=== PATIENT | male | born 1965 | race Caucasian/White ===

== ENCOUNTER 2023-02-20 15:13 | Outpatient (OUT) | payer OTHER, SELFPAY ==
[2023-02-20 15:46] LABS: Basophils Percent Auto 0.7 % (0.2-2.0); Eosinophils Absolute Auto 0.2 10^3/uL (0.0-0.7); Eosinophils Percent Auto 3.6 % (0.9-7.0); Hematocrit 39.2 % (42.0-54.0); Hemoglobin 13.1 g/dL (14.0-18.0); Immature Granulocytes Abs Auto 0.02 10^3/uL (0.00-0.03); Immature Granulocytes Pct Auto 0.5 % (0.0-0.5); Lymphocytes Absolute Auto 1.2 10^3/uL (1.2-3.8); Lymphocytes Percent Auto 28.3 % (20.5-60.0); Mean Corpuscular HGB Conc 33.4 g/dL (29.9-35.2); Mean Corpuscular Hemoglobin 29.4 pg (25.9-34.0); Mean Corpuscular Volume 88.1 fL (80.0-94.0); Mean Platelet Volume 9.9 fL (9.5-13.5); Monocytes Absolute Auto 0.7 10^3/uL (0.3-0.8); Monocytes Percent Auto 17.5 % (1.7-12.0); Neutrophils Absolute Auto 2.1 10^3/uL (1.4-6.5); Neutrophils Percent Auto 49.4 % (43.0-75.0); Platelet Count 203 10^3/uL (150-450); Red Blood Count 4.45 10^6/uL (4.70-6.10); Red Cell Distribution Width 12.2 % (11.0-15.0); White Blood Count 4.2 10^3/uL (4.0-11.0)
[2023-02-20 15:51] LABS: Estimated Average Glucose 111 mg/dL; Glycohemoglobin A1C 5.5 % (4.5-6.2)
[2023-02-20 16:39] LABS: Alanine Aminotransferase 24 U/L (16-63); Albumin Globulin Ratio 0.9; Albumin Level 3.7 g/dL (3.4-5.0); Alkaline Phosphatase 60 U/L (46-116); Anion Gap 12.6; Aspartate Amino Transferase 18 U/L (15-37); BUN Creatinine Ratio 14.5; Bilirubin Total 0.4 mg/dL (0.2-1.0); Calcium 9.3 mg/dL (8.5-10.1); Carbon Dioxide 27.2 mmol/L (21.0-32.0); Chloride 103 mmol/L (98-107); Chol HDL Ratio 2.7; Cholesterol 162 mg/dL (<=200); Estimated GFR (African America >60 (>=60); Estimated GFR (Non-African Ame >60 (>=60); Free T3 2.96 pg/mL (2.18-3.98); Glucose 87 mg/dL (74-106); HDL Cholesterol 61 mg/dL (40-60); Potassium 3.8 mmol/L (3.5-5.1); Sodium 139 mmol/L (136-145); Thyroid Stimulating Hormone 1.045 uIU/mL (0.358-3.740); Total Protein 7.7 g/dL (6.4-8.2); Triglycerides 42 mg/dL (<=150); VLDL CHOLESTEROL 8.4 mg/dL
== END 2023-02-20 15:14 ==
LOC: LAB 15:17
PROVIDERS: PCP Family Medicine; Visit Provider Family Medicine
DX: Z00.00 Encounter for general adult medical examination without abnormal findings (principal); Z12.5 Encounter for screening for malignant neoplasm of prostate
CPT/HCPCS: 36415; 80053; 80061; 83036; 84436; 84443; 84481; 85025; G0103

== ENCOUNTER 2024-04-05 11:01 | Outpatient (OUT) | payer OTHER, SELFPAY ==
[2024-04-05 11:27] LABS: Basophils Absolute Auto 0.1 10^3/uL (0.0-0.1); Basophils Percent Auto 1.1 % (0.2-2.0); Eosinophils Absolute Auto 0.3 10^3/uL (0.0-0.7); Eosinophils Percent Auto 7.1 % (0.9-7.0); Hematocrit 41.8 % (42.0-54.0); Hemoglobin 13.6 g/dL (14.0-18.0); Immature Granulocytes Abs Auto 0.01 10^3/uL (0.00-0.03); Immature Granulocytes Pct Auto 0.2 % (0.0-0.5); Lymphocytes Percent Auto 21.7 % (20.5-60.0); Mean Corpuscular HGB Conc 32.5 g/dL (29.9-35.2); Mean Corpuscular Hemoglobin 30.3 pg (25.9-34.0); Mean Corpuscular Volume 93.1 fL (80.0-94.0); Mean Platelet Volume 10.2 fL (9.5-13.5); Monocytes Absolute Auto 0.5 10^3/uL (0.3-0.8); Monocytes Percent Auto 11.6 % (1.7-12.0); Neutrophils Absolute Auto 2.6 10^3/uL (1.4-6.5); Neutrophils Percent Auto 58.3 % (43.0-75.0); Platelet Count 241 10^3/uL (150-450); Red Blood Count 4.49 10^6/uL (4.70-6.10); Red Cell Distribution Width 12.1 % (11.0-15.0); White Blood Count 4.4 10^3/uL (4.0-11.0)
[2024-04-05 11:39] LABS: Estimated Average Glucose 111 mg/dL; Glycohemoglobin A1C 5.5 % (4.5-6.2)
[2024-04-05 12:03] LABS: Alanine Aminotransferase 24 U/L (16-63); Albumin Globulin Ratio 0.9; Albumin Level 3.8 g/dL (3.4-5.0); Alkaline Phosphatase 56 U/L (46-116); Anion Gap 13.6; Aspartate Amino Transferase 21 U/L (15-37); Bilirubin Total 0.4 mg/dL (0.2-1.0); Calcium 8.9 mg/dL (8.5-10.1); Carbon Dioxide 26.5 mmol/L (21.0-32.0); Chloride 108 mmol/L (98-107); Chol HDL Ratio 2.7; Cholesterol 177 mg/dL (<=200); Estimated GFR (African America >60 (>=60); Estimated GFR (Non-African Ame >60 (>=60); Globulin 4.1 g/dL; Glucose 101 mg/dL (74-106); HDL Cholesterol 66 mg/dL (40-60); Potassium 4.1 mmol/L (3.5-5.1); Sodium 144 mmol/L (136-145); Thyroid Stimulating Hormone 0.663 uIU/mL (0.358-3.740); Total Protein 7.9 g/dL (6.4-8.2); Triglycerides 85 mg/dL (<=150)
[2024-04-05 12:06] LABS: Prostate Specific Antigen Scrn 2.41 ng/mL (<=4.00)
[2024-04-06 04:07] LABS: Testosterone 428 ng/dL (264-916)
== END 2024-04-05 11:02 | disposition home or self-care (01) ==
LOC: LAB 11:03
PROVIDERS: PCP Family Medicine; Visit Provider Family Medicine
DX: Z00.00 Encounter for general adult medical examination without abnormal findings (principal); I10 Essential (primary) hypertension; Z12.5 Encounter for screening for malignant neoplasm of prostate; E03.9 Hypothyroidism, unspecified; E78.5 Hyperlipidemia, unspecified; R73.09 Other abnormal glucose; R53.83 Other fatigue
CPT/HCPCS: 36415; 80053; 80061; 83036; 84403; 84439; 84443; 85025; G0103

== ENCOUNTER 2024-05-30 15:36 | Observation (INO) | payer OTHER, SELFPAY ==
[2024-05-30] VITALS (10 sets, daily range): BP systolic 126–192; BP diastolic 75–100; PULSE 43–96; TEMP 36.6–36.8; O2SAT 94–98; BMI 30.7; BMI 29.6
--- NOTE | 2024-05-30 16:01 | ECG_ITS ---
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
[2024-05-30 16:27] LABS: Anion Gap 8.4; BUN Creatinine Ratio 14.9; Calcium 9.2 mg/dL (8.5-10.1); Carbon Dioxide 32.5 mmol/L (21.0-32.0); Chloride 101 mmol/L (98-107); Estimated GFR (African America >60 (>=60); Estimated GFR (Non-African Ame >60 (>=60); Glucose 172 mg/dL (74-106); Potassium 3.9 mmol/L (3.5-5.1); Sodium 138 mmol/L (136-145)
[2024-05-30 16:39] LABS: Troponin I High Sensitivity 25.1 pg/mL (4.0-76.1)
--- NOTE | 2024-05-30 17:25 | ED.GENADUL1 ---
HPI HPI - General Adult General Chief complaint: Headache Stated complaint: Blood Pressure High Time Seen by Provider: 05/30/24 15:47 Source: patient Mode of arrival: walk-in Related Data Home Medications ?Medication ?Instructions ?Recorded ?Confirmed clonidine HCl 0.1 mg tablet 0.2 mg PO BID 05/30/24 05/30/24 hydralazine 100 mg tablet 100 mg PO BID 05/30/24 05/30/24 metformin 500 mg tablet 500 mg PO BID 05/30/24 05/30/24 pioglitazone 15 mg tablet 15 mg PO DAILY 05/30/24 05/30/24 Allergies Allergy/AdvReac Type Severity Reaction Status Date / Time oxytetracycline Allergy Severe Unknown Verified 05/30/24 15:48 [From Nilsa] Opioid HPI Opioid Management Most Recent Opioid Data: No Data to Display Exam Constitutional Vital Signs, click to edit/add: Last Vital Signs Temp 97.8 F 05/30/24 15:40 Pulse 93 H 05/30/24 16:32 Resp 18 05/30/24 16:32 BP 152/96 H 05/30/24 16:32 Pulse Ox 98 05/30/24 16:32 O2 Del Method Room Air 05/30/24 15:40 Course Vital Signs Vital signs: Vital Signs Temperature 97.8 F 05/30/24 15:40 Pulse Rate 90 05/30/24 15:40 Respiratory Rate 18 05/30/24 15:40 Blood Pressure 170/80 H 05/30/24 15:40 Pulse Oximetry 95 05/30/24 15:40 Oxygen Delivery Method Room Air 05/30/24 15:40 Temperature 97.8 F 05/30/24 15:40 Pulse Rate 93 H 05/30/24 16:32 Respiratory Rate 18 05/30/24 16:32 Blood Pressure 152/96 H 05/30/24 16:32 Pulse Oximetry 98 05/30/24 16:32 Oxygen Delivery Method Room Air 05/30/24 15:40 Medical Decision Making MDM Narrative Medical decision making narrative: This patient's blood pressure spontaneously decreased and he remains totally asymptomatic here. Renal function and Chem-7 is normal as is BNP and troponin. 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 When I ask him if he is had this before he has no knowledge of any type irregular heartbeats. I did speak to the hospitalist Dr. Zavala. She agrees that he should be admitted for observation and further work Lab Data Labs: Lab Results 05/30/24 Range/Units 16:11 Sodium 138 (136-145) mmol/L Potassium 3.9 (3.5-5.1) mmol/L Chloride 101 (98-107) mmol/L Carbon Dioxide 32.5 H (21.0-32.0) mmol/L Anion Gap 8.4 BUN 14.0 (7.0-18.0) mg/dL Creatinine 0.94 (0.70-1.30) mg/dL Est GFR ( Amer) >60 (>=60) Est GFR (Non-Af Amer) >60 (>=60) BUN/Creatinine Ratio 14.9 Glucose 172 H (74-106) mg/dL Calcium 9.2 (8.5-10.1) mg/dL Troponin I High Sens 25.1 (4.0-76.1) pg/mL NT-Pro-B Natriuret Pep 826.0 (<=900.0) pg/mL Discharge Plan Discharge Chief Complaint: Headache Clinical Impression: Arrhythmia Patient Disposition: Admitted as Observation Time of Disposition Decision: 17:31 Prescriptions / Home Meds: No Action clonidine HCl 0.1 mg tablet 0.2 mg PO BID hydralazine 100 mg tablet 100 mg PO BID metformin 500 mg tablet 500 mg PO BID pioglitazone 15 mg tablet 15 mg PO DAILY Print Language: Korean Referrals: Enrique Hennessy MD [Primary Care Provider] - 1 week
[2024-05-30] MEDS: CARVEDILOL 3.125 MG TABLET PO (20:08)
[2024-05-30] MEDS: CLONIDINE HCL 0.1 MG TABLET 0.2 MG PO (20:08)
[2024-05-30] MEDS: HYDRALAZINE HCL 50 MG TABLET 100 MG PO (20:08)
[2024-05-30 20:29] LABS: Glucometer 137 mg/dL (74-106)
[2024-05-31] VITALS (8 sets, daily range): BP systolic 118–192; BP diastolic 72–94; PULSE 39–93; TEMP 36.6–36.7; O2SAT 93–96
[2024-05-31 05:51] LABS: Basophils Percent Auto 0.6 % (0.2-2.0); Eosinophils Absolute Auto 0.3 10^3/uL (0.0-0.7); Eosinophils Percent Auto 4.7 % (0.9-7.0); Hemoglobin 13.5 g/dL (14.0-18.0); Immature Granulocytes Abs Auto 0.02 10^3/uL (0.00-0.03); Immature Granulocytes Pct Auto 0.4 % (0.0-0.5); Lymphocytes Absolute Auto 1.4 10^3/uL (1.2-3.8); Lymphocytes Percent Auto 25.2 % (20.5-60.0); Mean Corpuscular HGB Conc 32.9 g/dL (29.9-35.2); Mean Corpuscular Hemoglobin 29.9 pg (25.9-34.0); Mean Corpuscular Volume 90.9 fL (80.0-94.0); Mean Platelet Volume 10.1 fL (9.5-13.5); Monocytes Absolute Auto 0.9 10^3/uL (0.3-0.8); Monocytes Percent Auto 16.1 % (1.7-12.0); Neutrophils Absolute Auto 2.8 10^3/uL (1.4-6.5); Platelet Count 191 10^3/uL (150-450); Red Blood Count 4.51 10^6/uL (4.70-6.10); White Blood Count 5.4 10^3/uL (4.0-11.0)
[2024-05-31 06:06] LABS: Estimated Average Glucose 114 mg/dL; Glycohemoglobin A1C 5.6 % (4.5-6.2)
[2024-05-31 06:21] LABS: Alanine Aminotransferase 18 U/L (16-63); Albumin Globulin Ratio 0.8; Albumin Level 3.2 g/dL (3.4-5.0); Alkaline Phosphatase 50 U/L (46-116); Aspartate Amino Transferase 14 U/L (15-37); BUN Creatinine Ratio 26.1; Bilirubin Total 0.5 mg/dL (0.2-1.0); Calcium 8.9 mg/dL (8.5-10.1); Carbon Dioxide 28.1 mmol/L (21.0-32.0); Chloride 103 mmol/L (98-107); Chol HDL Ratio 3.1; Cholesterol 168 mg/dL (<=200); Estimated GFR (African America >60 (>=60); Estimated GFR (Non-African Ame >60 (>=60); Globulin 3.8 g/dL; Glucose 120 mg/dL (74-106); HDL Cholesterol 55 mg/dL (40-60); Magnesium 1.8 mg/dL (1.8-2.4); Potassium 4.1 mmol/L (3.5-5.1); Sodium 138 mmol/L (136-145); Thyroid Stimulating Hormone 1.395 uIU/mL (0.358-3.740); Triglycerides 95 mg/dL (<=150)
[2024-05-31 06:23] LABS: Troponin I High Sensitivity 27.1 pg/mL (4.0-76.1)
--- NOTE | 2024-05-31 07:51 | P.HP_ITS ---
HPI H&P: HPI History of Present Illness Chief complaint: Blood Pressure High, Arrhythmia Narrative: Patient has been seen in the office with increasing blood pressure. Medications were adjusted. Over the weekend, his blood pressure continued to elevate with sudden systolics over 200, diastolics over 100, and significant headache today prior to coming in, denied chest pain or shortness of breath, but did present to the emergency room due to the elevated blood pressure. Significantly elevated in the ER with a blood pressure 192/75 although patient was asymptomatic I saw patient up in the medical surgical floor, he was resting comfortably in bed, no complaints currently. Denies chest pain or shortness of breath Opioid HPI Opioid Management Most Recent Pain and Opioid Data: Last Pain Assessment 05/31/24 06:00 Last ORT Total Score 6 05/30/24 18:34 Last ORT Risk Category Moderate Risk 05/30/24 18:34 Review of Systems ROS Status of ROS 10 or more systems reviewed and unremark able except as noted in history and below PFSH PFSH Medical History (Updated 05/31/24 @ 07:55 by Enrique Hennesys MD) Diabetes ?E11.9 - Type 2 diabetes mellitus without complications (ICD-10) Hypertension ?I10 - Essential (primary) hypertension (ICD-10) Surgical History (Updated 05/30/24 @ 18:14 by Evon Stuart) Hx of tonsillectomy ?Z90.89 - Acquired absence of other organs (ICD-10) Family History (Updated 05/30/24 @ 18:14 by Evon Stuart) Mother Family history of cancer Family history of diabetes mellitus Father Family history of diabetes mellitus Family history of hypertension Social History (Updated 05/30/24 @ 18:16 by Evon Stuart) Within the past year, how often did you have a drink containing alcohol: 4 or more times a week Within the past year, how many standard drinks containing alcohol did you have on a typical day: 5 or 6 Within the past year, how often did you have six or more drinks on one occasion: weekly Total score: 7 Score interpretation: A score of 4 or more indicates drinking is likely to affect patient's safety. Smoking status: Former smoker Non-prescribed substance use: denies use and former substance user Previous occupational history: [employer] Highest level of school completed/degree received: some college, no degree Are you now , , , , never or living with a partner: In a typical week, how many times do you talk on the telephone with family, friends, or neighbors: 3 or more times per week How often do you get together with friends or relatives: 3 or more times per week How often do you attend jain or worship services: 4 or more times per year Do you belong to any clubs or organizations such as jain groups unions, fraternal or athletic groups, or school groups: no Total score: 3 Score interpretation: A score of greater than or equal to 2 indicates the lowest level of social isolation. Little interest or pleasure in doing things: not at all Feeling down, depressed, or hopeless: not at all Feel stressed/tense/nervous/anxious/difficulty sleeping: not at all Meds Home Medications and Allergies Home Medications ?Medication ?Instructions ?Recorded ?Confirmed ?Type clonidine HCl 0.1 mg tablet 0.2 mg PO BID 05/30/24 05/30/24 History hydralazine 100 mg tablet 100 mg PO BID 05/30/24 05/30/24 History metformin 500 mg tablet 500 mg PO BID 05/30/24 05/30/24 History pioglitazone 15 mg tablet 15 mg PO DAILY 05/30/24 05/30/24 History carvedilol 6.25 mg tablet 6.25 mg PO BID #60 tabs 05/31/24 Rx Allergies Allergy/AdvReac Type Severity Reaction Status Date / Time oxytetracycline Allergy Severe Unknown Verified 05/30/24 15:48 [From Terramycin] Exam Constitutional Vital Signs, click to edit/add: Last Vital Signs Temp 97.8 F 05/31/24 04:00 Pulse 93 H 05/31/24 07:50 Resp 15 05/31/24 04:00 BP 123/84 05/31/24 04:00 Pulse Ox 93 L 05/31/24 04:00 O2 Del Method Room Air 05/31/24 04:00 Documenting provider has reviewed patient's vital signs: yes Common normals: no apparent distress Respiratory Common normals: normal respiratory effort, no retractions and clear to auscultation bilaterally Cardio Common normals: regular rate and no murmurs Rhythm: abnormal rhythm GI Common normals: Normal to inspection, nondistended, normoactive bowel sounds present, soft to palpation and no hepatosplenomegaly Neuro Common normals: oriented x3, CN's II-XII intact bilaterally and moves all extremities Results Labs Labs: Short CBC 05/31/24 Range/Units 05:44 WBC 5.4 (4.0-11.0) 10^3/uL Hgb 13.5 L (14.0-18.0) g/dL Hct 41.0 L (42.0-54.0) % Plt Count 191 (150-450) 10^3/uL BMP 05/30/24 05/31/24 16:11 05:44 Sodium 138 138 Potassium 3.9 4.1 Chloride 101 103 Carbon Dioxide 32.5 H 28.1 BUN 14.0 18.0 Creatinine 0.94 0.69 L Glucose 172 H 120 H Calcium 9.2 8.9 Liver Function 05/31/24 Range/Units 05:44 Total Bilirubin 0.5 (0.2-1.0) mg/dL AST 14 L (15-37) U/L ALT 18 (16-63) U/L Alkaline Phosphatase 50 (46-116) U/L Albumin 3.2 L (3.4-5.0) g/dL Assessment and Plan Assessment and Plan (1) Hypertension: (2) Atrial trigeminy: (3) Uncontrolled hypertension: Plan Admission findings: Uncontrolled hypertension with blood pressure 192/75, troponin and BNP all negative. Arrhythmia noted on telemetry to be trigeminy Uncontrolled hypertension leading to the above-added Coreg, tolerating well so far, no bradycardia, if stable this morning will likely discharge to home in improving condition. Medications see list. Follow-up with me in the office in the next 2 to 3 days. If blood pressure significantly elevates, will check echocardiogram and consult to cardiology NIDDM-insulin sliding scale, continue with home medications Iron deficiency anemia-will follow as an outpatient Admission status: Patient mated with uncontrolled hypertension and trigeminy, so far is improved this morning, medically necessary treatment will likely span 1 midnight. Maintain observation status
--- NOTE | 2024-05-31 07:58 | P.DS_ITS ---
DS: Providers Provider Date of admission: 05/30/24 18:05 Primary care physician: Enrique Hennessy MD DS: Diagnosis Discharge Diagnosis (1) Hypertension: (2) Atrial trigeminy: (3) Uncontrolled hypertension: Plan Admission findings: Uncontrolled hypertension with blood pressure 192/75, troponin and BNP all negative. Arrhythmia noted on telemetry to be trigeminy Uncontrolled hypertension leading to the above including trigeminy-added Coreg, improving at the time of discharge NIDDM-stable at the time of discharge Iron deficiency anemia-will follow as an outpatient Admission status: Patient mated with uncontrolled hypertension and trigeminy, so far is improved this morning, medically necessary treatment will likely span 1 midnight. Maintain observation status DS: Summary Hospital Course Hospital Course: Patient admitted with uncontrolled hypertension with blood pressure of 192/75, placed on Coreg, added his regular home medications as well and his blood pressure did improve significantly. So far his blood pressures in the 120s this morning. But patient has not been ambulating yet. So the plan is to have him eat breakfast, ambulate, if blood pressure remains well-controlled, he can be discharged to home in improving condition. Medications see list. Follow-up with me in the office in 2 to 3 days. Time Spent with Patient Time attestation: Total time spent providing and/or coordinating discharge services: Exam Constitutional Vital Signs, click to edit/add: Last Vital Signs Temp 97.8 F 05/31/24 04:00 Pulse 93 H 05/31/24 07:50 Resp 15 05/31/24 04:00 BP 123/84 05/31/24 04:00 Pulse Ox 93 L 05/31/24 04:00 O2 Del Method Room Air 05/31/24 04:00 Documenting provider has reviewed patient's vital signs: yes Common normals: no apparent distress Respiratory Common normals: normal respiratory effort, no retractions and clear to auscultation bilaterally Cardio Common normals: regular rate and no murmurs Rhythm: abnormal rhythm GI Common normals: Normal to inspection, nondistended, normoactive bowel sounds present, soft to palpation and no hepatosplenomegaly Neuro Common normals: oriented x3, CN's II-XII intact bilaterally and moves all extremities DS: Data Data Completed and Pending Labs on day of discharge: Labs from last 24 hours 05/31/24 05/30/24 05/30/24 05:44 20:27 16:11 WBC 5.4 RBC 4.51 L Hgb 13.5 L Hct 41.0 L MCV 90.9 MCH 29.9 MCHC 32.9 RDW 12.0 Plt Count 191 MPV 10.1 Neut % (Auto) 53.0 Lymph % (Auto) 25.2 [place] % (Auto) 16.1 H Eos % (Auto) 4.7 Baso % (Auto) 0.6 Neut # (Auto) 2.8 Lymph # (Auto) 1.4 [place] # (Auto) 0.9 H Eos # (Auto) 0.3 Baso # (Auto) 0.0 Abs Immat Gran (auto) 0.02 Imm/Tot Granulo (auto) 0.4 Sodium 138 138 Potassium 4.1 3.9 Chloride 103 101 Carbon Dioxide 28.1 32.5 H Anion Gap 11.0 8.4 BUN 18.0 14.0 Creatinine 0.69 L 0.94 Est GFR ( Amer) >60 >60 Est GFR (Non-Af Amer) >60 >60 BUN/Creatinine Ratio 26.1 14.9 Glucose 120 H 172 H Estimat Average Glucose 114 Hemoglobin A1c 5.6 Calcium 8.9 9.2 Magnesium 1.8 Total Bilirubin 0.5 AST 14 L ALT 18 Alkaline Phosphatase 50 Troponin I High Sens 27.1 25.1 NT-Pro-B Natriuret Pep 427.0 826.0 Total Protein 7.0 Albumin 3.2 L Globulin 3.8 Albumin/Globulin Ratio 0.8 Triglycerides 95 Cholesterol 168 LDL Cholesterol, Calc 94.0 VLDL Cholesterol 19.0 HDL Cholesterol 55 Cholesterol/HDL Ratio 3.1 TSH 1.395 POC Glucose 137 H Discharge Plan Discharge Disposition: Home, Self-Care Discharge Medications: New carvedilol 6.25 mg Tablet 6.25 mg PO BID Qty: 60 11RF Continued clonidine HCl 0.1 mg tablet 0.2 mg PO BID hydralazine 100 mg tablet 100 mg PO BID metformin 500 mg tablet 500 mg PO BID pioglitazone 15 mg tablet 15 mg PO DAILY Discontinued olmesartan 40 mg tablet 40 mg PO .qd Print Language: Burkinan Forms: Portal Instructions
[2024-05-31] MEDS: PIOGLITAZONE 15 MG TABLET PO (08:03)
[2024-05-31] MEDS: METFORMIN HCL 500 MG TABLET PO (08:03)
[2024-05-31] MEDS: CLONIDINE HCL 0.1 MG TABLET 0.2 MG PO (08:04)
[2024-05-31] MEDS: HYDRALAZINE HCL 50 MG TABLET 100 MG PO (08:04)
[2024-05-31] MEDS: CARVEDILOL 6.25 MG TABLET PO (08:05)
--- NOTE | 2024-06-01 10:39 | CM.DCFOLLOWU ---
Person spoke with:patient How are you feeling?well, at work How is your pain? none Did you understand your discharge instructions? yes Do you have any questions about your discharge instructions? no Were you given any prescriptions at discharge? yes Were you able to get your prescriptions filled? yes Do you understand how to take your medications as ordered? yes Do you have any questions about your follow up appointment and do you plan to keep your follow up appointment? no questions, follow up reviewed Is there anything else that you would like to discuss? no Questions/Comments/Concerns/Other: none
== END 2024-05-31 10:00 | disposition home or self-care (01) ==
LOC: ER 17:31 → MS 18:08
PROVIDERS: Family Medicine; Admitting Provider Family Medicine; Emergency Provider Emergency Medicine Emergency Medical Services; PCP Family Medicine; Visit Provider Family Medicine
DX: I10 Essential (primary) hypertension (principal); R00.8 Other abnormalities of heart beat; E11.9 Type 2 diabetes mellitus without complications; D50.9 Iron deficiency anemia, unspecified; Z79.84 Long term (current) use of oral hypoglycemic drugs; Z87.891 Personal history of nicotine dependence
CPT/HCPCS: 36415; 80048; 80053; 80061; 83036; 83735; 83880; 84443; 84484; 85025; 93005; 99285; G0378

== ENCOUNTER 2024-06-08 14:25 | Outpatient (OUT) | payer OTHER, SELFPAY | END 2024-06-08 14:26 | disposition home or self-care (01) | LOC: PST 14:25 | PROVIDERS: PCP Family Medicine; Visit Provider Surgery | DX: Z01.818 Encounter for other preprocedural examination (principal); Z86.010 Personal history of colon polyps ==

== ENCOUNTER 2024-06-16 07:07 | Day surgery (SDC) | payer OTHER, SELFPAY ==
--- NOTE | 2024-06-16 | OP_ITS ---
OPERATION DATE: 06/16/2024 PREOPERATIVE DIAGNOSIS: Personal history of colon polyps. POSTOPERATIVE DIAGNOSIS: Ascending and transverse colon polyps, 4 and 3 mm respectively. PROCEDURE: Colonoscopy to cecum with cold snare polypectomy x2. SURGEON: Francisco Walton M.D. ANESTHESIA: Monitored anesthesia care. ESTIMATED BLOOD LOSS: Less than 1 mL. INDICATIONS AND CONSENT: Patient is a 58-year-old male with a personal history of colon polyps. Last colonoscopy 2018. Indications, risks, benefits, alternatives of proceeding with colonoscopy were explained extensively to the patient, including the risks of bleeding, colon perforation or anesthetic complications. All of his questions were answered. Informed consent was obtained. PROCEDURE: Patient brought to the operating room, placed in the left lateral decubitus position. Monitored anesthesia care was provided. Rectal exam was performed which showed no masses or blood. The scope was inserted into the anal canal. Under direct visualization was advanced. With the aid of abdominal compression, it was advanced to the cecum where cecal markings were clearly identified. Upon withdrawal of the scope, mucosal surfaces were carefully examined. There were no mass lesions or inflammatory changes. Within the ascending colon, there was noted to be a flat, 4 mm polyp that was removed with cold snare with good hemostasis. Within the transverse colon, there was noted to be a 3 mm sessile polyp that was also removed with cold biopsy forceps with good hemostasis. There were no other polyps or significant diverticulosis. The scope was retroflexed in the anal canal. There was no significant hemorrhoidal disease. Scope was then withdrawn. Patient tolerated procedure well, was sent to recovery room in good condition. Follow up surveillance colonoscopy likely in five years, but will depend on the pathology. CC: Enrique Hennessy M.D. ANGELLA
--- OUTSIDE RECORDS SUMMARY | 2024-06-16 07:09 | XMS_ITS | CCD ---
Author Organization [facility] Care Team Providers Care Torn[place] Chaser Name Role Phone DR PARAG HENNESSY Attending Unavailable DR PARAG HENNESSY Consulting Unavailable DR PARAG HENNESSY Primary Care Unavailable DR PARAG HENNESSY Admitting Unavailable Parag Hennessy Primary Care Physician Francisco BHAGAT Attending Unavailable Parag Hennessy Referring Unavailable Allergies Allergy Classification Reported Allergen(s) Allergy Type Date of Onset Reaction(s) Facility (1 source) bee venom Drug allergy (disorder) [facility] (1 source) Oxytetracycline Drug Allergy [facility] (1 source) No Known Medication Allergies; Translations: [No Known Medication Allergies] Propensity to adverse reactions (disorder) [facility] Repository Medications Current Medications Medication Drug Class(es) Dates Sig (Normalized) Sig (Original) cloNIDine hydrochloride 0.1 mg oral tablet (1 source) Central alpha-2 Adrenergic Agonist Start: 05-24-2024 take 2 tablets by mouth twice daily cloNIDine 0.1 mg tab 0.2 mg = 2 tab(s), Oral, BID, Refills(s) 0 Start Date: 05/24/24 Status: Ordered hydrALAZINE hydrochloride 100 mg oral tablet (1 source) Arteriolar Vasodilator Start: 05-24-2024 take 1 tablet by mouth twice daily hydrALAZINE 100 mg oral tablet 100 mg = 1 tab(s), Oral, BID, Refills(s) 0 Start Date: 05/24/24 Status: Ordered metFORMIN hydrochloride 500 mg oral tablet (1 source) Biguanide Start: 05-24-2024 take 1 tablet by mouth twice daily metformin 500 mg Tab 500 mg = 1 tab(s), Oral, BID, Refills(s) 0 Start Date: 05/24/24 Status: Ordered pioglitazone 15 mg oral tablet (1 source) Peroxisome Proliferator Receptor alpha Agonist, Peroxisome Proliferator Receptor gamma Agonist, Thiazolidinedione Start: 05-24-2024 take 1 tablet by mouth once daily pioglitazone 15 mg Tab 15 mg = 1 tab(s), Oral, Daily, Refills(s) 0 Start Date: 05/24/24 Status: Ordered Problems Problem Classification Problem Date Documented Da te Episodic/Chronic Alcohol-related disorders (1 source) Alcohol abuse 05-24-2024 Chronic Diabetes mellitus without complication (2 sources) Type 2 diabetes mellitus without complications; Translations: [Diabetes mellitus] Onset: 08-17-2022 05-23-2024 Chronic Essential hypertension (1 source) Hypertensive disorder 05-23-2024 Chronic Malaise and fatigue (1 source) Other fatigue; Translations: [OTHER FATIGUE] Onset: 08-17-2022 Episodic Other and unspecified benign neoplasm (2 sources) History of polyp of colon; Translations: [Personal history of colonic polyps] Onset: 05-26-2024 Episodic Other nutritional; endocrine; and metabolic disorders (1 source) Body mass index 30+ - obesity 05-26-2024 Chronic Other nutritional; endocrine; and metabolic disorders (1 source) Obesity caused by energy imbalance 05-24-2024 Chronic Other screening for suspected conditions (not mental disorders or infectious disease) (1 source) Encounter for screening for malignant neoplasm of prostate; Translations: [ENC SCREEN MALIG NEOPLASM PROSTATE] Onset: 08-17-2022 Episodic Results Test Name Value Interpretation Reference Range Facility Ambulatory Visit Summaryon 0 05-26-2024 Ambulatory Visit Summary Ambulatory Visit Summary ABDIRASHDIHARSHAD WEBER JR :1965 Visit Date:05/26/2024 Ambulatory Visit Instructions Your Diagnosis Personal history of colonic polyps Your Care Team Attending Physician - LEOLA MEJIA, Francisco Narayan Primary Care Physician - Parag Hennessy MD Referring Physician - Parag Hennessy MD This Is Your Medications List Contact prescribing physician if questions or concerns clonidine (cloNIDine 0.1 mg tab) hydrALAZINE (hydrALAZINE 100 mg oral tablet) metformin (metformin 500 mg Tab) pioglitazone (pioglitazone 15 mg Tab) Procedures Performed Colonoscopy (09/02/2018), EGD - esophagogastroduodenoscopy (09/02/2018), Tonsillectomy. Discharge Vitals Heart Rate (Peripheral) 76 Respiratory Rate 16 Blood Pressure 160/120 Height 64 in Height 162.5 cm Weight 178.86 lb Weight 81.3 kg BMI 30.79 Medications What How Much When Instructions Unchanged clonidine (cloNIDine 0.1 mg tab) 2 Tablets By Mouth 2 times a day Contact prescribing physician if questions or concerns Unchanged hydrALAZINE (hydrALAZINE 100 mg oral tablet) 1 Tablets By Mouth 2 times a day Contact prescribing physician if questions or concerns Unchanged metformin (metformin 500 mg Tab) 1 Tablets By Mouth 2 times a day Contact prescribing physician if questions or concerns Unchanged pioglitazone (pioglitazone 15 mg Tab) 1 Tablets By Mouth Every day Contact prescribing physician if questions or concerns Allergies No Known Allergies No Known Medication Allergies Problems Ongoing - Any problem that you are currently receiving treatment for. Alcohol abuse BMI 30.0-30.9,adult Diabetes HTN (hypertension) Obesity due to excess calories Personal history of colonic polyps Patient Survey You may receive a survey via text or e-mail asking about your office visit. Please share your experience with us by completing your survey. We appreciate your feedback and thank you for choosing us for your care. Normal [facility] Provider Letteron 04-16-2024 Provider Letter Provider Letter April 16, 2024 HARSHAD MILO [address] [place] [id number] : 1965 Dear Mr. Pedraza, We have been trying to reach you with no success regarding a referral from Dr Hennessy. It is important that you return our call upon receiving this letter. Also, at the time of your call, please provide us with your current information. Thank you for your prompt attention to this matter. Sincerely, [facility] General Surgery [phone] Normal [facility] CBC AUTO DIFFon 08-14-2022 BASO # 0.0 103/ul Normal 0.0-0.1 [facility] Comment on above: Performed By: #### C BC #### [facility] [address] [place] [address] Dr. Annelise Xavier Basophils/100 WBC (Bld) 0.8 % Normal 0.2-2.0 [facility] Comment on above: Performed By: #### C BC #### [facility] [address] [address] [address] Annelise Xavier EO # 0.2 103/ul Normal 0.0-0.7 [facility] Comment on above: Performed By: #### C BC #### [facility] [address] [place] [address] Dr. Annelise Xavier Eosinophils/100 WBC (Bld) 3.8 % Normal 0.9-7.0 [facility] Comment on above: Performed By: #### C BC #### [facility] [address] [place] [address] Dr. Annelise Xavier Erythrocyte distribution width (RBC) [Ratio] 12.0 % Normal 11.0-15.0 [facility] Comment on above: Performed By: #### C BC #### [facility] [address] [place] [address] Dr. Annelise Xavier Hematocrit (Bld) [Volume fraction] 39.4 % Critically low 42.0-54.0 [facility] Comment on above: Performed By: #### C BC #### [facility] [address] [place] [address] Dr. Annelise Xavier Hemoglobin (Bld) [Mass/Vol] 13.2 g/dL Critically low 14.0-18.0 [facility] Comment on above: Performed By: #### C BC #### [facility] [address] [place] [address] Dr. Annelise Xavier IG # 0.01 10e3/ul Normal 0.00-0.03 [facility] Comment on above: Performed By: #### C BC #### [facility] [address] [place] [address] Dr. Annelise Xavier IG % 0.2 % Normal 0.0-0.5 [facility] Comment on above: Performed By: #### C BC #### [facility] [address] [place] [address] Dr. Annelise Xavier LYMPH # 1.3 103/ul Normal 1.2-3.8 [facility] Comment on above: Performed By: #### C BC #### [facility] [address] [place] [address] Dr. Annelise Xavier Lymphocytes/100 WBC (Bld) 24.4 % Normal 20.5-60.0 [facility] Comment on above: Performed By: #### C BC #### [facility] [address] [place] [address] Dr. Annelise Xavier MANUAL DIFF REQ NO Normal [facility] Comment on above: Performed By: #### C BC #### [facility] [address] [place] [address] Dr. Annelise Xavier MCH (RBC) [Entitic mass] 29.9 pg Normal 25.9-34.0 [facility] Comment on above: Performed By: #### C BC #### [facility] [address] [place] [address] Dr. Annelise Xavier MCHC (RBC) [Mass/Vol] 33.5 g/dL Normal 29.9-35.2 [facility] Comment on above: Performed By: #### C BC #### [facility] [address] [place] [address] Dr. Annelise aXvier MCV (RBC) [Entitic vol] 89.1 fL Normal 80.0-94.0 [facility] Comment on above: Performed By: #### C BC #### [facility] [address] [place] [address] Dr. Annelise Xavier MONO # 0.7 103/ul Normal 0.3-0.8 [facility] Comment on above: Performed By: #### C BC #### [facility] [address] [place] [address] Dr. Annelise Xavier Monocytes/100 WBC (Bld) 12.8 % Critically high 1.7-12.0 [facility] Comment on above: Performed By: #### C BC #### [facility] [address] [place] [address] Dr. Annelise Xavier NEUT # 3.0 103/ul Normal 1.4-6.5 [facility] Comment on above: Performed By: #### C BC #### [facility] [address] [place] [address] Dr. Annelise Xavier Neutrophils/100 WBC (Bld) 58.0 % Normal 43.0-75.0 [facility] Comment on above: Performed By: #### C BC #### [facility] [address] [address] [address] Annelise Xavier Platelet mean volume (Bld) [Entitic vol] 9.8 fL Normal 9.5-13.5 [facility] Comment on above: Performed By: #### C BC #### [facility] [address] [place] [address] Dr. Annelise Xavier PLT 204 103/ul Normal 150-450 [facility] Comment on above: Performed By: #### C BC #### [facility] [address] [place] [address] Dr. Annelise Xavier RBC 4.42 106/ul Critically low 4.70-6.10 [facility] Comment on above: Performed By: #### C BC #### [facility] [address] [place] [address] Dr. Annelise Xavier WBC 5.2 103/ul Normal 4.0-11.0 [facility] Comment on above: Performed By: #### C BC #### [facility] [address] [place] [address] Dr. Annelise Xavier FREE T3on 08-14-2022 FREE T3 2.74 pg/mlL Normal 2.18-3.98 [facility] Comment on above: Performed By: #### T 4, FT3, CMP, TSH, LIPID #### [facility] [address] [place] [address] Dr. Annelise Xavier GLYCOHEMOGLOBIN A1Con 2021 ADA RECOMMENDATION SEE BELOW Normal [facility] Comment on above: Result Comment: ADA RECOMMENDED LIMIT 4.0 - 6.0 ADA THERAPEUTIC TARGET < 7.0 ACTION SUGGESTED > 7.0 Performed By: #### A 1C #### [facility] [address] [place] [address] Dr. Annelise Xavier Glucose [Mass/Vol] 120 mg/dL Normal [facility] Comment on above: Performed By: #### A 1C #### [facility] [address] [place] [address] Dr. Annelise Xavier HbA1c (Bld) [Mass fraction] 5.8 % Normal 4.5-6.2 [facility] Comment on above: Performed By: #### A 1C #### [facility] [address] [place] [address] Dr. Annelise Xavier LIPID PROFILEon 08-14-2022 CHOL-HDL RATIO NORM SEE BELOW Normal [facility] Comment on above: Result Comment: 3.3 - 4.4 LOW RISK 4.4 - 7.1 AVERAGE RISK 7.1 - 11.0 MODERATE RISK >11.0 HIGH RISK Performed By: #### T 4, FT3, CMP, TSH, LIPID #### [facility] [address] [place] [address] Dr. Annelise Xavier Cholesterol [Mass/Vol] 195 mg/dL Normal <=200 [facility] Comment on above: Performed By: #### T 4, FT3, CMP, TSH, LIPID #### [facility] [address] [place] [address] Dr. Annelise Xavier Cholesterol in HDL [Mass/Vol] 81 mg/dL Critically high 40-60 [facility] Comment on above: Performed By: #### T 4, FT3, CMP, TSH, LIPID #### [facility] [address] [place] [address] Dr. Annelise Xavier Cholesterol in LDL [Mass/Vol] 106.6 mg/dL Normal [facility] Comment on above: Performed By: #### T 4, FT3, CMP, TSH, LIPID #### [facility] [address] [place] [address] Dr. Annelise Xavier Cholesterol.total/ Cholesterol in HDL [Mass ratio] 2.4 {ratio} Normal [facility] Comment on above: Performed By: #### T 4, FT3, CMP, TSH, LIPID #### [facility] [address] [place] [address] Dr. Annelise Xavier HDL NORMAL > or = 60 mg/dl - LO W CARDIOVASCULAR RISK <40 mg/dl - HIGH CARDIOVASCULAR RISK Normal [facility] Comment on above: Performed By: #### T 4, FT3, CMP, TSH, LIPID #### [facility] [address] [address] [address] Annelise Xavier LDL CALC NORMAL SEE BELOW Normal [facility] Comment on above: Result Comment: <100 mg/dl OPTIMAL 100 - 129 mg/dl NEAR OR ABOVE OPTIMAL 130 - 159 mg/dl BORDERLINE HIGH 160 - 189 mg/dl HIGH >190 mg/dl VERY HIGH Performed By: #### T 4, FT3, CMP, TSH, LIPID #### [facility] [address] [place] [address] Dr. Annelise Xavier Triglyceride [Mass/Vol] 37 mg/dL Normal <=150 [facility] Comment on above: Performed By: #### T 4, FT3, CMP, TSH, LIPID #### [facility] [address] [place] [address] Dr. Annelise Xavier VLDL CALC 7.4 mg/dL Normal [facility] Comment on above: Performed By: #### T 4, FT3, CMP, TSH, LIPID #### [facility] [address] [place] [address] Dr. Annelise Xavier PROF 14(COMP METB)on 022 Albumin [Mass/Vol] 4.0 g/dL Normal 3.4-5.0 [facility] Comment on above: Performed By: #### T 4, FT3, CMP, TSH, LIPID #### [facility] [address] [place] [address] Dr. Annelise Xavier Albumin/Globulin [Mass ratio] 1.0 {ratio} Normal [facility] Comment on above: Performed By: #### T 4, FT3, CMP, TSH, LIPID #### [facility] [address] [place] [address] Dr. Annelise Xavier ALP [Catalytic activity/Vol] 58 U/L Normal 46-116 [facility] Comment on above: Performed By: #### T 4, FT3, CMP, TSH, LIPID #### [facility] [address] [place] [address] Dr. Annelise Xavier ALT [Catalytic activity/Vol] 24 U/L Normal 16-63 [facility] Comment on above: Performed By: #### T 4, FT3, CMP, TSH, LIPID #### [facility] [address] [address] [address] Annelise Xavier Anion gap [Moles/Vol] 12.8 mmol/L Normal [facility] Comment on above: Performed By: #### T 4, FT3, CMP, TSH, LIPID #### [facility] [address] [place] [address] Dr. Annelise Xavier AST [Catalytic activity/Vol] 23 U/L Normal 15-37 [facility] Comment on above: Performed By: #### T 4, FT3, CMP, TSH, LIPID #### [facility] [address] [place] [address] Dr. Annelise Xavier Bilirubin [Mass/Vol] 0.6 mg/dL Normal 0.2-1.0 [facility] Comment on above: Performed By: #### T 4, FT3, CMP, TSH, LIPID #### [facility] [address] [place] [address] Dr. Annelise Xavier Calcium [Mass/Vol] 9.5 mg/dL Normal 8.5-10.1 [facility] Comment on above: Performed By: #### T 4, FT3, CMP, TSH, LIPID #### [facility] [address] [place] [address] Dr. Annelise Xavier Chloride [Moles/Vol] 101 mmol/L Normal 98-107 [facility] Comment on above: Performed By: #### T 4, FT3, CMP, TSH, LIPID #### [facility] [address] [place] [address] Dr. Annelise Xavier CO2 [Moles/Vol] 26.1 mmol/L Normal 21.0-32.0 [facility] Comment on above: Performed By: #### T 4, FT3, CMP, TSH, LIPID #### [facility] [address] [place] [address] Dr. Annelise Xavier Creatinine [Mass/Vol] 0.68 mg/dL Critically low 0.70-1.30 [facility] Comment on above: Performed By: #### T 4, FT3, CMP, TSH, LIPID #### [facility] [address] [address] [address] Annelise Xavier EGFR-AF PALAUAN >60 Normal >=60 [facility] Comment on above: Performed By: #### T 4, FT3, CMP, TSH, LIPID #### [facility] [address] [address] [address] Annelise Xavier EGFR-NON AF PALAUAN >60 Normal >=60 [facility] Comment on above: Performed By: #### T 4, FT3, CMP, TSH, LIPID #### [facility] [address] [place] [address] Dr. Annelise Xavier Globulin (S) [Mass/Vol] 4.0 g/dL Normal [facility] Comment on above: Performed By: #### T 4, FT3, CMP, TSH, LIPID #### [facility] [address] [address] [address] Annelise Xavier Glucose [Mass/Vol] 105 mg/dL Normal 74-106 [facility] Comment on above: Performed By: #### T 4, FT3, CMP, TSH, LIPID #### [facility] [address] [address] [address] Annelise Xavier Potassium [Moles/Vol] 3.9 mmol/L Normal 3.5-5.1 [facility] Comment on above: Performed By: #### T 4, FT3, CMP, TSH, LIPID #### [facility] [address] [address] [address] Annelise Xavier Protein [Mass/Vol] 8.0 g/dL Normal 6.4-8.2 [facility] Comment on above: Performed By: #### T 4, FT3, CMP, TSH, LIPID #### [facility] [address] [address] [address] Annelise Xavier Sodium [Moles/Vol] 136 mmol/L Normal 136-145 [facility] Comment on above: Performed By: #### T 4, FT3, CMP, TSH, LIPID #### [facility] [address] [address] [address] Annelise Xavier Urea nitrogen [Mass/Vol] 15.0 mg/dL Normal 7.0-18.0 [facility] Comment on above: Performed By: #### T 4, FT3, CMP, TSH, LIPID #### [facility] [address] [address] [address] Annelise Xavier Urea nitrogen/Creatinin e [Mass ratio] 22.1 mg/mg Normal [facility] Comment on above: Performed By: #### T 4, FT3, CMP, TSH, LIPID #### [facility] [address] [address] [address] Annelise Xavier T4on 08-14-2022 T4 [Mass/Vol] 8.80 ug/dL Normal 4.50-12.10 [facility] Comment on above: Performed By: #### T 4, FT3, CMP, TSH, LIPID #### [facility] [address] [address] [address] Annelise Xavier TSHon 08-14-2022 TSH 1.029 uIU/mL Normal 0.358-3.740 [facility] Comment on above: Performed By: #### T 4, FT3, CMP, TSH, LIPID #### [facility] [address] [address] [address] Annelise Xavier Vital Signs Date Time Vital Sign Value Performing Clinician Merlin schumacher 05-26-2024 16:07-0400 Diastolic blood pressure 120 mm[Hg] Francisco BHAGAT [facility] 05-26-2024 16:07-0400 Mean blood pressure 133 mm[Hg] Francisco VARGHESEL [facility] 05-26-2024 16:07-0400 Systolic blood pressure 160 mm[Hg] Francisco VARGHESEL [facility] 05-26-2024 15:45-0400 Blood Pressure Location Francisco NILL [facility] 05-26-2024 15:45-0400 Diastolic blood pressure 116 mm[Hg] Francisco VARGHESEL [facility] 05-26-2024 15:45-0400 Heart rate 76 /min Francisco ABIMAELL [facility] 05-26-2024 15:45-0400 Respiratory rate 16 /min Francisco NILL [facility] 05-26-2024 15:45-0400 Systolic blood pressure 156 mm[Hg] Francisco NILL [facility] Encounters Encounter Date Encounter Type Care Provider Facility Start: 05-26-2024 End: 05-26-2024 ambulatory Francisco BHAGAT Facility:[facility] Start: 05-26-2024 End: 05-26-2024 Patient encounter procedure Francisco BHAGAT [facility] Start: 04-06-2024 ambulatory Francisco BHAGAT Facility:[facility] Start: 08-17-2022 Encounter for genera l adult medical examination without abnormal findings DR PARAG HENNESSY [facility] Start: 08-14-2022 End: 08-15-[address] PARAG HENNESSY Facility: Start: 08-14-2022 End: 08-15-2022 Encounter for general adult medical examination without abnormal findings DR PARAG HENNESSY Facility: Procedures Date Procedure Procedure Detail Performing Clinician Start: 08-14-[address] SEMAJ HENNESSY Comment on above: Performed By: #### P [facility] #### [facility] [address] [place] [address] Dr. Annelise Xavier Start: 09-02-2018 Colonoscopy Francisco GO Start: 09-02-2018 Esophagogastroduodenoscopy Francisco BHAGAT Tonsillectomy Francisco VARGHESEL Immunizations Immunization Date Immunization Notes Care Provider Fa cility 09-06-2021 SARS-CoV-2 (COVID-19 ) mRNA BNT-162b2 vax Francisco NILL [facility] 01-13-2021 SARS-CoV-2 (COVID-19 ) mRNA BNT-162b2 dangx Francisco BHAGAT [facility] Payers Date Payer Category Payer Unknown [id number] 1965 Unknown [id number] 1965 Unknown [id number] 1958 Unknown [id number] Social History Date Type Detail Facility Start: 05-26-2024 Tobacco smoking status Ex-smoker (fi nding) [facility] Tobacco smoking status Smokeless tobacco user within last 30 days [facility] Sex Assigned At Male [facility] Functional Status Date Assessment Result Facility 05-26-2024 Functional Status N/A [facility] Clinical Note 05-26-2024 Note Date & Type Note Facility 05-26-2024 Note General Surgery Offi ce/Clinic Note Chief Complaint consultation for colonoscopy HPI Staff 58 year old male presents on consultation from Dr. Hennessy for surveillance colonoscopy. Last colonoscopy completed 08/2018 with sessile serrated adenoma. Denies abdominal or rectal pain. No rectal bleeding or change in bowel habits. Denies nausea or vomiting. No unexplained weight loss. No known family history of colon cancer. History of Present Illness 58 year old male presents on consultation from Dr. Hennessy for surveillance colonoscopy; denies change in bms or blood in stools, no abd complaints. Last colonoscopy completed 08/2018 with sessile serrated adenoma. no asa or NSAID use; no tobacco use; no fmhx of GI malignancy or IBD. Review of Systems PHQ Score Initial Depression Screen Score: 0 SCORE ROS - Provider Constitutional: no fever, no sweats, no weight loss. Eyes: no glasses, no blurred vision, no visual loss. ENMT: no dentures, no hoarseness, no swallowing difficulties, no hearing loss, no ear infection(s), no nose bleeds. Cardiovascular: normal blood pressure, no chest pain, regular heartbeat, no heart murmur. Respiratory: no shortness of breath, no cough, no asthma, no wheezing. Gastrointestinal: no nausea, no vomiting, no diarrhea, no constipation, no blood in stool, no change in bowel habits, no abdominal pain, no hepatitis. Genitourinary: no kidney stones, no urine infection, no dysuria. Musculoskeletal: no pain, no weakness. Skin: no changing moles, no rash, no skin lumps. Neurologic: no seizures, no epilepsy, no headache. Psychiatric: no emotional or psychiatric problem. Heme/Lymph: no bleeding problems, no anemia, no blood clots, no transfusions. Allergy/Immunologic: no swollen lymph nodes/glands, no IV drug abuse. Other: Additional ROS info: Except as noted in the above Review of Systems and in the History of Present Illness, all other systems have been reviewed and are negative or noncontributory. Physical Exam Vitals & Measurements HR: 76(Peripheral) RR: 16 BP: 160/120 HT: 64 in HT: 162.5 cm WT: 81.3 kg WT: 178.86 lb BMI: 30.79 HEENT: normal conjunctiva, sclera clear, no scleral icterus, EOM intact, PERRLA, oral mucosa moist without lesions. Neck: trachea midline, no mass, symmetric, no thyromegaly or nodules, no adenopathy Respiratory: lungs CTA, respirations non labored. Cardiovascular: regular rate and rhythm, no murmur, no pedal edema or varicosities. Gastrointestinal: soft, non distended, no tenderness, no masses, no palpable hernias, diastasis recti no, no hepatosplenomegaly; normal bs Lymphatic: no cervical adenopathy, no no supraclavicular adenopathy. Musculoskeletal: normal gait, digits and nails without infection, nodes, cyanosis, clubbing. Skin: no rashes, no lesions, no ulcers, no subcutaneous nodules, induration. Psychiatric/Neuro: oriented to time, place, person, judgement normal, affect appropriate for age, insight intact, no focal deficits. Tests, review of old records completed , Discussed surgical options, risks, and possible complications with patient. Assessment/Plan 1. Personal history of colonic polyps (Z86.010: Personal history of colonic polyps) plan surveillance colonoscopy under anesthesia, informed consent obtained. Follow-up No qualifying data available Problem List/Past Medical History Ongoing Alcohol abuse BMI 30.0-30.9,adult Diabetes HTN (hypertension) Obesity due to excess calories Personal history of colonic polyps Historical No qualifying data Procedure/Surgical History Colonoscopy (09/02/2018), EGD - esophagogastroduodenoscopy (09/02/2018), Tonsillectomy. Medications cloNIDine 0.1 mg tab, 0.2 mg= 2 tab(s), Oral, BID hydrALAZINE 100 mg oral tablet, 100 mg= 1 tab(s), Oral, BID metformin 500 mg Tab, 500 mg= 1 tab(s), Oral, BID pioglitazone 15 mg Tab, 15 mg= 1 tab(s), Oral, Daily Allergies No Known Allergies No Known Medication Allergies Social History Alcohol Current, Beer, 3-5 times per week, 05/26/2024 Substance Abuse - Denies Substance Abuse, 05/26/2024 Tobacco Former smoker, quit more than 30 days ago Tobacco Use:. Smokeless tobacco user within last 30 days Smokeless Tobacco Use:. Cigarettes, Oral, 1 per day. Started age 15.0 Years. Stopped age 23 Years. Yes, 05/26/2024 Family History Diabetes mellitus type 2: Mother and Father. Leukemia: Mother. Immunizations Vaccine Date Status SARS-CoV-2 (COVID-19) mRNA BNT-162b2 vax 09/06/2021 Recorded SARS-CoV-2 (COVID-19) mRNA BNT-162b2 vax 01/13/2021 Recorded [facility] Comment on above: Result Comment: Elec tronically Signed By: LEOLA MEJIA, Francisco Perera\Date and Time Signed: 05/26/24 16:11 EDT Evaluation + Plan note Note Date & Type Note Facility Evaluation + Plan note No data available for this section [facility] Hospital Discharge instructions Note Date & Type Note Facility Hospital Discharge instructions No data available for this section [facility] Progress note Note Date & Type Note Facility Progress note No data available for this section [facility] Summary Purpose Family History No Family History Records Found No data available for this section No Family History Records Found Advance Directives No Advanced Directives Records FoundNo Advanced Directives Records Found Additional Source Comments (unrecognized sect ion and content) No Status Records FoundNo Status Records Found INFORMATION SOURCE (unrecogn ized section and content) DATE CREATED AUTHOR 08/17/2022 [facility] DATE CREATED AUTHOR AUTHOR'S ORGANIZ ATION 05/28/2024 [facility] Patient Care team informatio n (unrecognized section and content) Personnel Name: Parag Hennessy MD Address: Address: [address] [place] [address] FOR RECORDS PERTAINING TO PATIENTS WHO ARE OR HAVE BEEN ENROLLED IN A CHEMICAL DEPENDENCY/SUBSTANCEABUSE PROGRAM, SOME INFORMATION MAY BE OMITTED. This clinical summary was aggregated from multiple sources. Caution should be exercised in using it in the provision of clinical care. This summary normalizes information from multiple sources, and as a consequence, information in this document may materially change the coding, format and clinical context of patient data. In addition, data may be omitted in some cases. CLINICAL DECISIONS SHOULD BE BASED ON THE PRIMARY CLINICAL RECORDS. [facility] [employer] [facility] provides no warranty or guarantee of the accuracy or completeness of information in this document.
[2024-06-16 07:30] VITALS: BP 153/86; PULSE 84; TEMP 36.1; O2SAT 96; BMI 30.2
[2024-06-16] MEDS: LACTATED RINGER'S SOLUTION 1,000 ML 50 ML IV (07:52)
[2024-06-16 08:50] VITALS: BP 142/83; PULSE 74; TEMP 36.6; O2SAT 95
[2024-06-16 09:05] VITALS: BP 181/100; PULSE 75; O2SAT 96
[2024-06-16 09:20] VITALS: BP 175/100; PULSE 70; O2SAT 99
--- NOTE | 2024-06-16 09:31 | PC.NURSE ---
Updated Dr. Zavala on elevated bp. Patient states that Dr. Hennessy has been adjusting his medication lately regarding his bp. Patient aware to come to ER if he is having any abnormal symptoms. Reviewed symptoms to be alert for with patient. He voices understanding. He states he will see Dr. Hennessy again to see what he wants to do with his medication.
== END 2024-06-16 09:45 | disposition home or self-care (01) ==
PROVIDERS: PCP Family Medicine; Visit Provider Surgery
PROC: (CPT 811; principal; 2024-06-16 08:20)
DX: D12.2 Benign neoplasm of ascending colon (principal); D12.3 Benign neoplasm of transverse colon; Z86.0100 Personal history of colon polyps, unspecified; E11.9 Type 2 diabetes mellitus without complications; Z79.84 Long term (current) use of oral hypoglycemic drugs; I10 Essential (primary) hypertension; R00.8 Other abnormalities of heart beat
CPT/HCPCS: 45380; 45385; J2704

== ENCOUNTER 2025-07-04 12:02 | Outpatient (OUT) | payer OTHER, SELFPAY ==
--- OUTSIDE RECORDS SUMMARY | 2025-07-04 12:08 | XMS_ITS | CCD ---
Author Organization [facility] Care Team Providers [employer] Sales Representative Name Role Phone DR PARAG HENNESSY Attending Unavailable DR PARAG HENNESSY Consulting Unavailable DR PARAG HENNESSY Primary Care Unavailable DR PARAG HENNESSY Admitting Unavailable Parag Hennessy Primary Care Physician MD Francisco Walton Attending Provider Francisco Walton Attending Unavailable Francisco Walton Admitting Unavailable Francisco WALTON Attending Unavailable ABIMAELLFrancisco Attending Unavailable Parag Hennessy Referring Unavailable ABIMAELLFrancisco Attending Unavailable Allergies Allergy Classification Reported Allergen(s) Allergy Type Date of Onset Reaction(s) Facility (1 source) bee venom Drug allergy (disorder) [facility] Repository (1 source) Oxytetracycline Drug Allergy [facility] Rep[facility] (1 source) No Known Medication Allergies; Translations: [No Known Medication Allergies] Propensity to adverse reactions (disorder) [facility] Rep[facility] Medications Current Medications Medication Drug Class(es) Dates Sig (Normalized) Sig (Original) carvedilol 25 mg oral tablet (1 source) alpha-Adrenergic Lilly, beta-Adrenergic Lilly Start: 4 take 1 tablet by mouth twice daily carvedilol 25 mg Tab 25 mg = 1 tab(s), Oral, BID, Refills(s) 0 Start Date: 07/21/24 Status: Ordered cloNIDine hydrochloride 0.1 mg oral tablet (2 sources) Central alpha-2 Adrenergic Agonist Start: 4 take 2 tablets by mouth twice daily cloNIDine 0.1 mg tab 0.2 mg = 2 tab(s), Oral, BID, Refills(s) 0 Start Date: 05/24/24 Status: Ordered hydrALAZINE hydrochloride 100 mg oral tablet (2 sources) Arteriolar Vasodilator Start: 4 take 1 tablet by mouth twice daily hydrALAZINE 100 mg oral tablet 100 mg = 1 tab(s), Oral, BID, Refills(s) 0 Start Date: 05/24/24 Status: Ordered hydroCHLOROthiazide 12.5 mg / lisinopril 20 mg oral tablet (1 source) Thiazide Diuretic, Angiotensin Converting Enzyme Inhibitor Start: 4 take 1 tablet by mouth once daily hydrochlorothiaz sonia-lisinopril 12.5 mg-20 mg Tab 1 tab(s), Oral, Daily, Refill(s) 0 Start Date: 07/21/24 Status: Ordered metFORMIN hydrochloride 500 mg oral tablet (2 sources) Biguanide Start: 4 take 1 tablet by mouth twice daily metformin 500 mg Tab 500 mg = 1 tab(s), Oral, BID, Refills(s) 0 Start Date: 05/24/24 Status: Ordered pioglitazone 15 mg oral tablet (2 sources) Peroxisome Proliferator Receptor alpha Agonist, Peroxisome Proliferator Receptor gamma Agonist, Thiazolidinedione Start: 4 take 1 tablet by mouth once daily pioglitazone 15 mg Tab 15 mg = 1 tab(s), Oral, Daily, Refills(s) 0 Start Date: 05/24/24 Status: Ordered Problems Problem Classification Problem Date Documented Da te Episodic/Chronic Alcohol-related disorders (2 sources) Alcohol abuse 05-24-2024 Chronic Diabetes mellitus without complication (3 sources) Type 2 diabetes mellitus without complications; Translations: [Diabetes mellitus] Onset: 08-17-2022 05-23-2024 Chronic Essential hypertension (2 sources) Hypertensive disorder 05-23-2024 Chronic Malaise and fatigue (1 source) Other fatigue; Translations: [OTHER FATIGUE] Onset: 08-17-2022 Episodic Other and unspecified benign neoplasm (3 sources) History of polyp of colon; Translations: [Personal history of colonic polyps] Onset: 05-26-2024 Episodic Other and unspecified benign neoplasm (2 sources) Benign neoplasm of ascending colon; Translations: [Benign neoplasm of ascending colon] Onset: 07-21-2024 Episodic Other and unspecified benign neoplasm (2 sources) Benign neoplasm of transverse colon; Translations: [Benign neoplasm of transverse colon] Onset: 07-21-2024 Episodic Other gastrointestinal disorders (1 source) Occult blood in stools 07-21-2024 Episodic Other nutritional; endocrine; and metabolic disorders (2 sources) Body mass index 30+ - obesity 05-26-2024 Chronic Other nutritional; endocrine; and metabolic disorders (2 sources) Obesity caused by energy imbalance 05-24-2024 Chronic Other screening for suspected conditions (not mental disorders or infectious disease) (1 source) Encounter for screening for malignant neoplasm of prostate; Translations: [ENC SCREEN MALIG NEOPLASM PROSTATE] Onset: 08-17-2022 Episodic Results Test Name Value Interpretation Reference Range Facility Ambulatory Visit Summaryon 1 09-20-2023 Ambulatory Visit Summary Ambulatory Visit Summary HARSHAD PEDRAZA JR :1965 Visit Date:07/21/2024 Ambulatory Visit Instructions Your Diagnosis Benign neoplasm of ascending colon Benign neoplasm of transverse colon Your Care Team Attending Physician - LEOLA MEJIA, Francisco Narayan Primary Care Physician - Minoo MEJIA, Parag This Is Your Medications List Contact prescribing physician if questions or concerns carvedilol (carvedilol 25 mg Tab) clonidine (cloNIDine 0.1 mg tab) hydrALAZINE (hydrALAZINE 100 mg oral tablet) hydrochlorothiazide-lisinopri l (hydrochlorothiazide-lisinopr il 12.5 mg-20 mg Tab) metformin (metformin 500 mg Tab) pioglitazone (pioglitazone 15 mg Tab) Procedures Performed Colonoscopy (06/16/2024), Colonoscopy (09/02/2018), EGD - esophagogastroduodenoscopy (09/02/2018), Tonsillectomy. Medications What How Much When Instructions Unchanged carvedilol (carvedilol 25 mg Tab) 1 Tablets By Mouth 2 times a day Contact prescribing physician if questions or concerns Unchanged clonidine (cloNIDine 0.1 mg tab) 2 Tablets By Mouth 2 times a day Contact prescribing physician if questions or concerns Unchanged hydrALAZINE (hydrALAZINE 100 mg oral tablet) 1 Tablets By Mouth 2 times a day Contact prescribing physician if questions or concerns Unchanged hydrochlorothiazide-lisinopri l (hydrochlorothiazide-lisinopr il 12.5 mg-20 mg Tab) 1 Tablets By Mouth Every [...] are currently receiving treatment for. Alcohol abuse Benign neoplasm of ascending colon Benign neoplasm of transverse colon BMI 30.0-30.9,adult Diabetes HTN (hypertension) Obesity due to excess calories Personal history of colonic polyps Historical - Any problem that you are no longer receiving treatment for. Positive fecal occult blood test Patient Survey You may receive a survey via text or e-mail asking about your office visit. Please share your experience with us by completing your survey. We appreciate your feedback and thank you for choosing us for your care. Ayanna [facility] General Surgery Office/Clini c Noteon 07-21-2024 General Surgery Office/Clinic Note General Surgery Office/Clinic Note Chief Complaint post operative follow up HPI Staff 5 week post operative follow up post colonoscopy with ascending polypectomy. History of Present Illness s/p colonoscopy due to personal h/o colon polyps; had 2 small tubular adenomas removed, from ascending and transverse colon; doing well, denies abd pain or blood in stools, no abd complaints. Review of Systems PHQ Score Initial Depression [...] been reviewed and are negative or noncontributory. Assessment/Plan 1. Benign neoplasm of ascending colon (D12.2: Benign neoplasm of ascending colon) recommend surveillance colonoscopy in 5 years, call sooner if problems/questions. 2. Benign neoplasm of transverse colon (D12.3: Benign neoplasm of transverse colon) see # 1 Follow-up No qualifying data available Problem List/Past Medical History Ongoing Alcohol abuse Benign neoplasm of ascending colon Benign neoplasm of transverse colon BMI 30.0-30.9,adult Diabetes HTN (hypertension) Obesity due to excess calories Personal history of colonic polyps Historical Positive fecal occult blood test Procedure/Surgical History Colonoscopy (06/16/2024), Colonoscopy (09/02/2018), EGD - esophagogastroduodenoscopy (09/02/2018), Tonsillectomy. Medications carvedilol 25 mg Tab, 25 mg= 1 tab(s), Oral, BID cloNIDine 0.1 mg tab, 0.2 mg= 2 tab(s), Oral, BID hydrALAZINE 100 mg oral tablet, 100 mg= 1 tab(s), Oral, BID hydrochlorothiazide-lisinopri l 12.5 mg-20 mg Tab, 1 tab(s), Oral, Daily metformin 500 mg Tab, 500 mg= 1 tab(s), Oral, BID pioglitazone 15 mg Tab, 15 mg= 1 tab(s), Oral, Daily Allergies No Known Allergies No Known Medication Allergies Social History Alcohol Current. Beer. 3-5 times per week., 07/20/2024 Substance Abuse - Denies Substance Abuse, 05/26/2024 Never., 07/20/2024 Tobacco Former smoker, quit more than 30 days ago Tobacco Use:., 07/20/2024 Family History Diabetes mellitus type 2: Mother and Father. Leukemia: Mother. Immunizations Vaccine Date Status SARS-CoV-2 (COVID-19) mRNA BNT-162b2 vax 09/06/2021 Recorded SARS-CoV-2 (COVID-19) mRNA BNT-162b2 vax 01/13/2021 Recorded Normal [facility] Comment on above: Result Comment: Elec tronically Signed By: LEOLA MEJIA, Francisco Perera\Date and Time Signed: 07/21/24 16:04 EST Reminderson 07-21-2024 Reminders Reminders From: Colleen Ward LPN To: N - Clinical; Sent: 07/21/2024 16:11:19 EST Show up: 05/17/2029 07:00:00 EDT Subject: colonoscopy recall Due Date/Time: 06/16/2029 07:00:00 EDT Reminder/Recall Patient due for surveillance colonoscopy 06/16/2029 due to history of polyps. Normal [facility] Pathology Request for Lab Co rpon 06-16-2024 Pathology Request for Lab Kuldeep Normal [facility] Comment on above: Order Comment: PATHO LOGY GI SPECIMEN Result Comment: See report. Scanned copy available in EMR. PERFORMED BY: [place] [address] PATHOLOGIST FOLDER MACHINE OPERATOR DONN MERCADO M.D. Performed By: #### P ATH TO [facility] #### [address] Ambulatory Visit Summaryon 0 05-26-2024 Ambulatory Visit Summary Ambulatory Visit Summary JUNIORHARSHAD Larkin JR :1965 Visit Date:05/26/2024 Ambulatory Visit Instructions Your Diagnosis Personal history of colonic polyps Your Care Team Attending Physician - ELOLA MEJIA, Francisco Narayan Primary Care Physician - Minoo MEJIA, Parag Referring Physician - Parag Hennessy MD This [...] for choosing us for your care. Normal [facility] Provider Letteron 04-16-2024 Provider Letter Provider Letter April 16, 2024 HARSHAD PEDRAZA [address] [place] [id number] : 1965 Dear Troy Beltranrosette, We have been trying to reach you with no success regarding a referral from Dr Hennessy. It is important that you return our call upon receiving this letter. Also, at the time of your call, please provide us with your current information. Thank you for your prompt attention to this matter. Sincerely, [facility] General Surgery [phone] Normal [facility] CBC AUTO DIFFon 08-14-2022 BASO # 0.0 103/ul Normal 0.0-0.1 [facility] Comment on above: Performed By: #### C BC #### [facility] [address] [place] [address] Dr. Annelise Xavier Basophils/100 WBC (Bld) 0.8 % Normal 0.2-2.0 [facility] Comment on above: Performed By: #### C BC #### [facility] [address] [address] [address] Annelise Xavier EO # 0.2 103/ul Normal 0.0-0.7 [facility] Comment on above: Performed By: #### C BC #### [facility] [address] [place] [address] Dr. Annelise aXvier Eosinophils/100 WBC (Bld) 3.8 % Normal 0.9-7.0 [facility] Comment on above: Performed By: #### C BC #### [facility] [address] [place] [address] Dr. Annelise Xavier Erythrocyte distribution width (RBC) [Ratio] 12.0 % Normal 11.0-15.0 [facility] Comment on above: Performed By: #### C BC #### [facility] [address] [place] [address] Dr. Annelise Xavier Hematocrit (Bld) [Volume fraction] 39.4 % Critically low 42.0-54.0 [facility] Comment on above: Performed By: #### C BC #### [facility] [address] [place] [address] Dr. Annelise Xavier Hemoglobin (Bld) [Mass/Vol] 13.2 g/dL Critically low 14.0-18.0 [facility] Comment on above: Performed By: #### C BC #### [facility] [address] [place] [address] Dr. Annelise Xavier IG # 0.01 10e3/ul Normal 0.00-0.03 [facility] Comment on above: Performed By: #### C BC #### [facility] [address] [place] [address] Dr. Annelise Xavier IG % 0.2 % Normal 0.0-0.5 [facility] Comment on above: Performed By: #### C BC #### [facility] [address] [place] [address] Dr. Annelise Xavier LYMPH # 1.3 103/ul Normal 1.2-3.8 [facility] Comment on above: Performed By: #### C BC #### [facility] [address] [place] [address] Dr. Annelise Xavier Lymphocytes/100 WBC (Bld) 24.4 % Normal 20.5-60.0 [facility] Comment on above: Performed By: #### C BC #### [facility] [address] [place] [address] Dr. Annelise Xavier MANUAL DIFF REQ NO Normal [facility] Comment on above: Performed By: #### C BC #### [facility] [address] [address] [address] Annelise Xavier MCH (RBC) [Entitic mass] 29.9 pg Normal 25.9-34.0 [facility] Comment on above: Performed By: #### C BC #### [facility] [address] [address] [address] Annelise Xavier MCHC (RBC) [Mass/Vol] 33.5 g/dL Normal 29.9-35.2 [facility] Comment on above: Performed By: #### C BC #### [facility] [address] [place] [address] Dr. Annelise Xavier MCV (RBC) [Entitic vol] 89.1 fL Normal 80.0-94.0 [facility] Comment on above: Performed By: #### C BC #### [facility] [address] [place] [address] Dr. Annelise Xavier MONO # 0.7 103/ul Normal 0.3-0.8 [facility] Comment on above: Performed By: #### C BC #### [facility] [address] [place] [address] Dr. Annelise Xavier Monocytes/100 WBC (Bld) 12.8 % Critically high 1.7-12.0 [facility] Comment on above: Performed By: #### C BC #### [facility] [address] [place] [address] Dr. Annelise Xavier NEUT # 3.0 103/ul Normal 1.4-6.5 [facility] Comment on above: Performed By: #### C BC #### [facility] [address] [place] [address] Dr. Annelise Xavier Neutrophils/100 WBC (Bld) 58.0 % Normal 43.0-75.0 [facility] Comment on above: Performed By: #### C BC #### [facility] [address] [place] [address] Dr. Annelise Xavier Platelet mean volume (Bld) [Entitic vol] 9.8 fL Normal 9.5-13.5 [facility] Comment on above: Performed By: #### C BC #### [facility] [address] [address] [address] Annelise Xavier PLT 204 103/ul Normal 150-450 [facility] Comment on above: Performed By: #### C BC #### [facility] [address] [address] [address] Annelise Xavier RBC 4.42 106/ul Critically low 4.70-6.10 [facility] Comment on above: Performed By: #### C BC #### [facility] [address] [address] [address] Annelise Xavier WBC 5.2 103/ul Normal 4.0-11.0 [facility] Comment on above: Performed By: #### C BC #### [facility] [address] [address] [address] Annelise Xavier FREE T3on 08-14-2022 FREE T3 2.74 pg/mlL Normal 2.18-3.98 [facility] Comment on above: Performed By: #### T 4, FT3, CMP, TSH, LIPID #### [facility] [address] [address] [address] Annelise Xavier GLYCOHEMOGLOBIN A1Con 2021 ADA RECOMMENDATION SEE BELOW Normal [facility] Comment on above: Result Comment: ADA RECOMMENDED LIMIT 4.0 - 6.0 ADA THERAPEUTIC TARGET < 7.0 ACTION SUGGESTED > 7.0 Performed By: #### A 1C #### [facility] [address] [address] [address] Annelise Xavier Glucose [Mass/Vol] 120 mg/dL Normal [facility] Comment on above: Performed By: #### A 1C #### [facility] [address] [address] [address] Annelise Xavier HbA1c (Bld) [Mass fraction] 5.8 % Normal 4.5-6.2 [facility] Comment on above: Performed By: #### A 1C #### [facility] [address] [place] [address] Dr. Annelise Xavier LIPID PROFILEon 08-14-2022 CHOL-HDL RATIO NORM SEE BELOW Normal [facility] Comment on above: Result Comment: 3.3 - 4.4 LOW RISK 4.4 - 7.1 AVERAGE RISK 7.1 - 11.0 MODERATE RISK >11.0 HIGH RISK Performed By: #### T 4, FT3, CMP, TSH, LIPID #### [facility] [address] [place] [address] Dr. Annelise Xavier Cholesterol [Mass/Vol] 195 mg/dL Normal <=200 [facility] Comment on above: Performed By: #### T 4, FT3, CMP, TSH, LIPID #### [facility] [address] [place] [address] Dr. Annelise Xavier Cholesterol in HDL [Mass/Vol] 81 mg/dL Critically high 40-60 [facility] Comment on above: Performed By: #### T 4, FT3, CMP, TSH, LIPID #### [facility] [address] [place] [address] Dr. Annelise Xavier Cholesterol in LDL [Mass/Vol] 106.6 mg/dL Normal [facility] Comment on above: Performed By: #### T 4, FT3, CMP, TSH, LIPID #### [facility] [address] [place] [address] Dr. Annelise Xavier Cholesterol.total/ Cholesterol in HDL [Mass ratio] 2.4 {ratio} Normal [facility] Comment on above: Performed By: #### T 4, FT3, CMP, TSH, LIPID #### [facility] [address] [place] [address] Dr. Annelise Xavier HDL NORMAL > or = 60 mg/dl - LO W CARDIOVASCULAR RISK <40 mg/dl - HIGH CARDIOVASCULAR RISK Normal [facility] Comment on above: Performed By: #### T 4, FT3, CMP, TSH, LIPID #### [facility] [address] [place] [address] Dr. Annelise Xavier LDL CALC NORMAL SEE BELOW Normal [facility] Comment on above: Result Comment: <100 mg/dl OPTIMAL 100 - 129 mg/dl NEAR OR ABOVE OPTIMAL 130 - 159 mg/dl BORDERLINE HIGH 160 - 189 mg/dl HIGH >190 mg/dl VERY HIGH Performed By: #### T 4, FT3, CMP, TSH, LIPID #### [facility] [address] [address] [address] Annelise Xavier Triglyceride [Mass/Vol] 37 mg/dL Normal <=150 [facility] Comment on above: Performed By: #### T 4, FT3, CMP, TSH, LIPID #### [facility] [address] [address] [address] Annelise Xavier VLDL CALC 7.4 mg/dL Normal [facility] Comment on above: Performed By: #### T 4, FT3, CMP, TSH, LIPID #### [facility] [address] [place] [address] Dr. Annelise Xavier PROF 14(COMP METB)on 022 Albumin [Mass/Vol] 4.0 g/dL Normal 3.4-5.0 [facility] Comment on above: Performed By: #### T 4, FT3, CMP, TSH, LIPID #### [facility] [address] [place] [address] Dr. Annelise Xavier Albumin/Globulin [Mass ratio] 1.0 {ratio} Normal [facility] Comment on above: Performed By: #### T 4, FT3, CMP, TSH, LIPID #### [facility] [address] [place] [address] Dr. Annelise Xavier ALP [Catalytic activity/Vol] 58 U/L Normal 46-116 [facility] Comment on above: Performed By: #### T 4, FT3, CMP, TSH, LIPID #### [facility] [address] [place] [address] Dr. Annelise Xavier ALT [Catalytic activity/Vol] 24 U/L Normal 16-63 [facility] Comment on above: Performed By: #### T 4, FT3, CMP, TSH, LIPID #### [facility] [address] [place] [address] Dr. Annelise Xavier Anion gap [Moles/Vol] 12.8 mmol/L Normal [facility] Comment on above: Performed By: #### T 4, FT3, CMP, TSH, LIPID #### [facility] [address] [place] [address] Dr. Annelise Xavier AST [Catalytic activity/Vol] 23 U/L Normal 15-37 [facility] Comment on above: Performed By: #### T 4, FT3, CMP, TSH, LIPID #### [facility] [address] [place] [address] Dr. Annelise Xavier Bilirubin [Mass/Vol] 0.6 mg/dL Normal 0.2-1.0 [facility] Comment on above: Performed By: #### T 4, FT3, CMP, TSH, LIPID #### [facility] [address] [place] [address] Dr. Annelise Xavier Calcium [Mass/Vol] 9.5 mg/dL Normal 8.5-10.1 [facility] Comment on above: Performed By: #### T 4, FT3, CMP, TSH, LIPID #### [facility] [address] [place] [address] Dr. Annelise Xavier Chloride [Moles/Vol] 101 mmol/L Normal 98-107 [facility] Comment on above: Performed By: #### T 4, FT3, CMP, TSH, LIPID #### [facility] [address] [place] [address] Dr. Annelise Xavier CO2 [Moles/Vol] 26.1 mmol/L Normal 21.0-32.0 [facility] Comment on above: Performed By: #### T 4, FT3, CMP, TSH, LIPID #### [facility] [address] [place] [address] Dr. Annelise Xavier Creatinine [Mass/Vol] 0.68 mg/dL Critically low 0.70-1.30 [facility] Comment on above: Performed By: #### T 4, FT3, CMP, TSH, LIPID #### [facility] [address] [place] [address] Dr. Annelise Xavier EGFR-AF SENEGALESE >60 Normal >=60 [facility] Comment on above: Performed By: #### T 4, FT3, CMP, TSH, LIPID #### [facility] [address] [place] [address] Dr. Annelise Xavier EGFR-NON AF SENEGALESE >60 Normal >=60 [facility] Comment on above: Performed By: #### T 4, FT3, CMP, TSH, LIPID #### [facility] [address] [place] [address] Dr. Annelise Xavier Globulin (S) [Mass/Vol] 4.0 g/dL Normal [facility] Comment on above: Performed By: #### T 4, FT3, CMP, TSH, LIPID #### [facility] [address] [place] [address] Dr. Annelise Xavier Glucose [Mass/Vol] 105 mg/dL Normal 74-106 [facility] Comment on above: Performed By: #### T 4, FT3, CMP, TSH, LIPID #### [facility] [address] [place] [address] Dr. Annelise Xavier Potassium [Moles/Vol] 3.9 mmol/L Normal 3.5-5.1 [facility] Comment on above: Performed By: #### T 4, FT3, CMP, TSH, LIPID #### [facility] [address] [place] [address] Dr. Annelise Xavier Protein [Mass/Vol] 8.0 g/dL Normal 6.4-8.2 [facility] Comment on above: Performed By: #### T 4, FT3, CMP, TSH, LIPID #### [facility] [address] [place] [address] Dr. Annelise Xavier Sodium [Moles/Vol] 136 mmol/L Normal 136-145 [facility] Comment on above: Performed By: #### T 4, FT3, CMP, TSH, LIPID #### [facility] [address] [place] [address] Dr. Annelise Xavier Urea nitrogen [Mass/Vol] 15.0 mg/dL Normal 7.0-18.0 [facility] Comment on above: Performed By: #### T 4, FT3, CMP, TSH, LIPID #### [facility] [address] [place] [address] Dr. Annelise Xavier Urea nitrogen/Creatinin e [Mass ratio] 22.1 mg/mg Normal [facility] Comment on above: Performed By: #### T 4, FT3, CMP, TSH, LIPID #### [facility] [address] [place] [address] Dr. Annelise Xavier T4on 08-14-2022 T4 [Mass/Vol] 8.80 ug/dL Normal 4.50-12.10 [facility] Comment on above: Performed By: #### T 4, FT3, CMP, TSH, LIPID #### [facility] Laboratory [address] [place] [address] Dr. Annelise Xavier TSHon 08-14-2022 TSH 1.029 uIU/mL Normal 0.358-3.740 [facility] Comment on above: Performed By: #### T 4, FT3, CMP, TSH, LIPID #### [facility] [address] [place] [address] Dr. Annelise Xavier Vital Signs Date Time Vital Sign Value Performing Clinician Faci lity 05-26-2024 16:07-0400 Diastolic blood pressure 120 mm[Hg] Francisco NILL [facility] 05-26-2024 16:07-0400 Mean blood pressure 133 mm[Hg] Francisco NILL [facility] 05-26-2024 16:07-0400 Systolic blood pressure 160 mm[Hg] Francisco NILL [facility] 05-26-2024 15:45-0400 Blood Pressure Location Francisco NILL [facility] 05-26-2024 15:45-0400 Diastolic blood pressure 116 mm[Hg] Francisco NILL [facility] 05-26-2024 15:45-0400 Heart rate 76 /min Francisco NILL [facility] 05-26-2024 15:45-0400 Respiratory rate 16 /min Francisco NILL [facility] 05-26-2024 15:45-0400 Systolic blood pressure 156 mm[Hg] Francisco WALTON [facility] Encounters Encounter Date Encounter Type Care Provider Facility Start: 07-21-2024 End: 07-21-2024 ambulatory Francisco WALTON Facility:[facility] Start: 07-21-2024 End: 07-21-2024 Patient encounter procedure Francisco VARGHESEL [facility] Start: 06-16-2024 End: 06-16-2024 ambulatory Francisco Walton [facility] Work Phone: Start: 06-16-2024 End: 06-16-2024 Departed Referred MD Francisco Walton Work Phone: [facility] Start: 06-16-2024 End: 06-16-2024 ambulatory Francisco WALTON Facility:CD:[id number] Start: 05-26-2024 End: 05-26-2024 ambulatory Francisco R LEOLA Facility:[facility] Start: 05-26-2024 End: 05-26-2024 Patient encounter procedure Francisco R LEOLA [facility] Start: 04-06-2024 ambulatory Francisco WALTON Facility:[facility] Start: 08-17-2022 Encounter for genera l adult medical examination without abnormal findings DR PARAG HENNESSY [facility] Start: 08-14-2022 End: 08-15-[address] PARAG HENNESSY Facility:[facility] Start: 08-14-2022 End: 08-15-2022 Encounter for general adult medical examination without abnormal findings DR PARAG HENNESSY Facility:[facility] Procedures Date Procedure Procedure Detail Performing Clinician Start: 06-16-2024 Colonoscopy Francisco GO Start: 08-14-[address] SEMAJ HENNESSY Comment on above: Performed By: #### P [facility] #### [facility] [address] [place] [address] Dr. Annelise Xavier Start: 09-02-2018 Colonoscopy Francisco GO Start: 09-02-2018 Esophagogastroduodenoscopy Francisco LEOLA Tonsillectomy Francisco WALTON Plan of Treatment Date Care Activity Detail Author Start: 06-16-2024 [facility] Immunizations Immunization Date Immunization Notes Care Provider Fa cility 09-06-2021 SARS-CoV-2 (COVID-19 ) mRNA BNT-162b2 vax Francisco VARGHESEPepper [facility] 01-13-2021 SARS-CoV-2 (COVID-19 ) mRNA BNT-162b2 vax Francisco VARGHESEPepper [facility] Payers Date Payer Category Payer Self-pay 2024 Unknown [id number] 1965 Unknown [id number] 1965 Unknown [id number] 1966 Unknown [id number] 1966 Unknown [id number] 1959 Unknown [id number] Private Health Insurance [facility] [id number] Unknown [id number] Social History Date Type Detail Facility Start: 05-26-2024 End: 07-20-2024 Tobacco smoking status Ex-smoker (finding) [facility] [place] Tobacco smoking status Smokeless tobacco user [facility] last [facility] Sex Assigned At Male [facility] Start: 1965 Sex Assigned At Male [facility] Functional Status Date Assessment Result Facility 07-21-2024 Functional Status N/A [facility] 05-26-2024 Functional Status N/A [facility] Clinical Note 05-26-2024 Note Date & [...] SARS-CoV-2 (COVID-19) mRNA BNT-162b2 vax 01/13/2021 Recorded [facility] Comment on above: Result Comment: Elec tronically Signed By: LEOLA MEJIA, Francisco Perera\Date and Time Signed: 05/26/24 16:11 EDT Evaluation + Plan note Note Date & Type Note Facility Evaluation + Plan note No data available for this section [facility] Evaluation note Note Date & Type Note Facility Evaluation note No assessment information availa [facility] Work Phone: Hospital Discharge instructions Note Date & Type Note Facility Hospital Discharge instructions No data available for this section [facility] Progress note Note Date & Type Note Facility Progress note No data available for this section [facility] Summary Purpose Family History No Family History Records Found No data available for this section No Family History Records FoundNo Family History Records Found No data available for this section Advance Directives Advance Directive Response Recorded Date/ Time Advance Directives No June 16, 2024 12:36pm Additional Source Comments (unrecognized sect ion and content) No Status Records FoundNo Status Records FoundNo Status Records Found INFORMATION SOURCE (unrecogn ized section and content) DATE CREATED AUTHOR 08/17/2022 [facility] DATE CREATED AUTHOR AUTHOR'S ORGANIZ ATION 06/23/2024 [facility] [place] [facility] DATE CREATED AUTHOR AUTHOR'S ORGANIZ ATION 07/22/2024 Estuardo Marquez [facility] Patient Care team informatio n (unrecognized section and content) Personnel Name: Parag Hennessy MD Address: Address: [address] [place] [address] Carissa BAUTISTA [address] Team Status: Inactive Member Role Status Dates Francisco Walton MD [facility] Attending Provider Active Start: June 16, 2024 End: June 16, 2024 Goals (unrecognized section and content) Goals may be documented in a n alternate section FOR RECORDS PERTAINING TO PATIENTS WHO ARE [...] BE BASED ON THE PRIMARY CLINICAL RECORDS. [employer] provides no warranty or guarantee of the accuracy or completeness of information in this document.
[2025-07-04 12:37] LABS: Hematocrit 40.0 % (42.0-54.0); Hemoglobin 13.1 g/dL (14.0-18.0); Immature Granulocytes Abs Auto 0.01 10^3/uL (0.00-0.03); Immature Granulocytes Pct Auto 0.2 % (0.0-0.5); Lymphocytes Absolute Auto 1.5 10^3/uL (1.2-3.8); Mean Corpuscular HGB Conc 32.8 g/dL (29.9-35.2); Mean Corpuscular Hemoglobin 31.2 pg (25.9-34.0); Mean Corpuscular Volume 95.2 fL (80.0-94.0); Platelet Count 203 10^3/uL (150-450); Red Blood Count 4.20 10^6/uL (4.70-6.10); White Blood Count 4.6 10^3/uL (4.0-11.0)
[2025-07-04 12:55] LABS: Alanine Aminotransferase 23 U/L (16-63); Albumin Globulin Ratio 0.9; Albumin Level 3.8 g/dL (3.4-5.0); Alkaline Phosphatase 48 U/L (46-116); Anion Gap 12.0; Aspartate Amino Transferase 15 U/L (15-37); Blood Urea Nitrogen 14.0 mg/dL (7.0-18.0); Calcium 9.2 mg/dL (8.5-10.1); Carbon Dioxide 28.4 mmol/L (21.0-32.0); Chloride 104 mmol/L (98-107); Cholesterol 202 mg/dL (<=200); Estimated GFR (African America >60 (>=60 mL/min/1.73m^2); Estimated GFR (Non-African Ame >60 (>=60 mL/min/1.73m^2); Free T3 2.86 pg/mL (2.18-3.98); Globulin 4.1 g/dL; Glucose 114 mg/dL (74-106); HDL Cholesterol 73 mg/dL (40-60); Potassium 4.4 mmol/L (3.5-5.1); Sodium 140 mmol/L (136-145); Thyroid Stimulating Hormone 0.544 uIU/mL (0.358-3.740); Total Protein 7.9 g/dL (6.4-8.2); Triglycerides 63 mg/dL (<=150); Uric Acid 6.2 mg/dL (3.5-7.2); VLDL CHOLESTEROL 12.6 mg/dL
== END 2025-07-04 12:03 | disposition home or self-care (01) ==
LOC: LAB 12:03
PROVIDERS: PCP Family Medicine; Visit Provider Family Medicine
DX: Z00.00 Encounter for general adult medical examination without abnormal findings (principal); Z12.5 Encounter for screening for malignant neoplasm of prostate
CPT/HCPCS: 36415; 80053; 80061; 83036; 84436; 84443; 84481; 84550; 85025; G0103